=== PATIENT | female | born 1970 | race African-American/Black ===

== ENCOUNTER 2017-04-15 10:25 | Emergency (ER) | payer BC ==
[~2017-04-15] VITALS: Ht 160 cm; Wt 58.6 kg
[2017-04-15 11:44] LABS: HEMATOCRIT 40.1 % (36.0-46.0); MCH 31.2 PG (29.0-34.0); MCHC 33.2 G/DL (30.0-36.0); MCV 94.1 FL (83-99); PLATELET COUNT 298 K/uL (156-360); RBC DIS.WIDTH-CV 12.5 % (11.8-14.6); RBC DIS.WIDTH-SD 43.3 % (39-53); RED BLOOD COUNT 4.26 M/uL (3.80-5.20); WHITE BLOOD COUNT 8.6 K/uL (4.1-10.2)
[2017-04-15 12:34] LABS: ANION GAP 8 MEQ/L (2-14); CHLORIDE 111 MEQ/L (99-109); GFR ESTIMATE (CALCULATED) > 59 mL/min/; GLUCOSE 92 mg/dL (70-99); POTASSIUM 4.2 MEQ/L (3.7-5.4); SAMPLE HEMOLYSIS CHECK 0; SAMPLE ICTERIC CHECK 0; SAMPLE LIPEMIA CHECK 0; SODIUM 143 MEQ/L (136-147); UREA NITROGEN (BUN) 15 mg/dL (9-23)
[2017-04-15] MEDS ORDERED: GUAIFENESIN WI120 ML PO (13:36)
[2017-04-15] MEDS ORDERED: NAPROSYN500 MG PO (13:36)
[2017-04-15] MEDS ORDERED: PREDNISONE10 M1 PO (13:36)
[2017-04-15 13:54] VITALS: BP 126/60
== END 2017-04-15 13:55 | disposition home or self-care (01) ==
LOC: EME 10:25
DX: R09.1 Pleurisy (principal); J06.9 Acute upper respiratory infection, unspecified; F17.210 Nicotine dependence, cigarettes, uncomplicated
CPT/HCPCS: 71020; 80048; 85027; 93005; 99281; 99284